=== PATIENT | male | born 1995 | race Caucasian/White ===

== ENCOUNTER 2017-12-31 16:14 | Emergency (ER) | payer SELFPAY ==
[~2017-12-31] VITALS: Ht 180.3 cm; Wt 117.9 kg
[~2017-12-31 16:14] MED LIST: ALLEGRA ALLERGY60 M2 PO; CEPHALEXIN500 M1 PO
[2017-12-31 16:19] VITALS: BP 132/71
[2017-12-31 18:10] LABS: BILIRUBIN NEGATIVE (NEGATIVE); BLOOD TRACE-INTACT (NEGATIVE); CLARITY CLEAR (CLEAR); COLOR YELLOW (YELLOW); GLUCOSE NEGATIVE (NEGATIVE); KETONE TRACE (NEGATIVE); LEUKO ESTERASE NEGATIVE (NEGATIVE); NITRITE NEGATIVE (NEGATIVE); SPECIFIC GRAVITY 1.025 (1.005-1.030); UROBILINOGEN 0.2 E.U./dl (0.2-1.0)
[2017-12-31 18:18] LABS: MUCOUS 1+
[2017-12-31 18:19] LABS: BACTERIA TRACE; FINE GRANULAR CAST 0-2; RBC 0-2 rbc/hpf (0-2); WBC 0-2 wbc/hpf (0-5)
[2017-12-31] MEDS ORDERED: CYCLOBENZAPRINE5 M3 PO (18:33)
[2017-12-31] MEDS ORDERED: PREDNISONE10 MG PO (18:33)
[2017-12-31] MEDS ORDERED: DOXYCYCLINE100 M3 PO (18:33)
== END 2017-12-31 19:00 | disposition home or self-care (01) ==
LOC: ED 16:14
PROVIDERS: Nurse Practitioner
DX: M54.5 Low back pain (principal); J01.90 Acute sinusitis, unspecified; Z79.899 Other long term (current) drug therapy; X50.0XXA Overexertion from strenuous movement or load, initial encounter; Y93.89 Activity, other specified; Y92.89 Other specified places as the place of occurrence of the external cause; Y99.9 Unspecified external cause status

== ENCOUNTER → 2019-01-13 | Outpatient (CLI) | payer OTHER ==
[~2019-01-13] MED LIST changes: +CYCLOBENZAPRINE5 M3 PO; +DOXYCYCLINE100 M3 PO; +PREDNISONE10 MG PO
== END | disposition home or self-care (01) ==
LOC: CARD 08:21
DX: R01.1 Cardiac murmur, unspecified (principal)

== ENCOUNTER 2023-05-27 07:12 | Emergency (ER) | payer OTHER ==
[~2023-05-27] VITALS: Ht 187.9 cm; Wt 129.3 kg
[~2023-05-27 07:12] MED LIST changes: +AMOX-CLAV 875-1 EACH PO
[2023-05-27 07:29] VITALS: BP 127/59
[2023-05-27] MEDS ORDERED: TIZANIDINE HCL4 MG PO (07:43)
[2023-05-27] MEDS ORDERED: PREDNISONE50 MG PO (07:43)
== END 2023-05-27 08:30 | disposition home or self-care (01) ==
LOC: ED 07:12
DX: M54.50 Low back pain, unspecified (principal); M62.830 Muscle spasm of back

== ENCOUNTER 2024-02-16 23:32 | Emergency (ER) | payer OTHER ==
[~2024-02-16] VITALS: Ht 182.8 cm; Wt 129.3 kg
[~2024-02-16 23:32] MED LIST changes: +PREDNISONE50 MG PO; +TIZANIDINE HCL4 MG PO
[2024-02-16 23:41] VITALS: BP 144/86
[2024-02-16] MEDS ORDERED: LORazepam 1 MG TAB PO ONE (23:55)
== END 2024-02-17 00:41 | disposition home or self-care (01) ==
LOC: ED 23:32
DX: F41.9 Anxiety disorder, unspecified (principal); G47.00 Insomnia, unspecified